=== PATIENT | male | born 1970 | race Caucasian/White ===

== ENCOUNTER → 2019-11-25 | Outpatient (CLI) | payer OTHER ==
[~2019-11-25] MED LIST: ARIP10 PO; CYCL10 PO; Cleocin HCl300 MG PO; GABA300 PO; KETO10 PO; LORA1 PO; METF500 PO; NAPR500 PO; OXYACE5T PO; OXYACE7.5T PO; RANI150 PO; RXLORA1 PO; RXOXYACE PO; SUCR1 PO; ZOLP10 PO
[2019-11-25 19:54] LABS: Appearance, Urine Clear (Clear); Bilirubin, Urine Neg (Neg); Blood, Urine Neg (Neg); Color, Urine Yellow (P-Yellow); Glucose Qualitative, Urine Neg (Neg); Ketones, Urine Neg (Neg); Leukocyte Esterase, Urine Neg (Neg); Nitrite, Urine Neg (Neg); Protein, Urine Neg (Neg); Urobilinogen, Urine NORM (Normal)
[2019-11-25 20:19] LABS: Microalb/Creat Ratio UR, Rand Unable to Calculate mg/g (0.000-30.000); Microalbumin, Random Urine <5.000 mg/L (0.000-20.000)
== END | disposition home or self-care (01) ==
LOC: LAB 18:50 → LAB SHORT 18:50
PROVIDERS: Nurse Practitioner Family
DX: E11.9 Type 2 diabetes mellitus without complications (principal); R35.0 Frequency of micturition; R39.11 Hesitancy of micturition; R39.82 Chronic bladder pain
CPT/HCPCS: 81003; 82043; 82570

== ENCOUNTER → 2023-08-18 | Outpatient (CLI) | payer OTHER | LOC: PLD 07:33 → LAB SHORT 07:33 | DX: D48.5 Neoplasm of uncertain behavior of skin (principal) | CPT/HCPCS: 88312 ==